=== PATIENT | male | born 1980 | race Caucasian/White ===

== ENCOUNTER 2020-04-23 22:07 | Emergency (ER) | payer OTHER ==
[~2020-04-23] VITALS: Ht 180.3 cm; Wt 118.2 kg
[2020-04-23 22:16] VITALS: BP 147/77; Ht 180.3 cm; Wt 118.2 kg
[2020-04-23] MEDS ORDERED: METOPROLOL TART25 MG PO (22:18)
[2020-04-23] MEDS ORDERED: TYLENOL W/CODEI1 TAB PO (23:07)
[2020-04-23] MEDS ORDERED: OMNICEF300 MG PO (23:07)
== END 2020-04-24 | disposition home or self-care (01) ==
LOC: D.ER 22:07
DX: K04.7 Periapical abscess without sinus (principal); K08.89 Other specified disorders of teeth and supporting structures; Z72.0 Tobacco use; I10 Essential (primary) hypertension